=== PATIENT | female | born 1955 | race Caucasian/White ===

== ENCOUNTER 2017-07-16 07:00 | Day surgery (SDC) | payer OTHER ==
[2017-07-16] MEDS ORDERED: ULTRACET PO (09:29)
[2017-07-16] MEDS ORDERED: MACROBID 100 M100 MG PO (09:29)
== END 2017-07-16 13:00 | disposition home or self-care (01) ==
LOC: SURH 07:00 → CIR.AMB 07:00 → EDSTATUS 07:00 → SURH 09:00 → O/R 12:20 → CIR.AMB 13:00
DX: N81.11 Cystocele, midline (principal)